=== PATIENT | female | born 1980 | race Two or more races ===

== ENCOUNTER → 2016-10-18 | Outpatient (CLI) | payer OTHER ==
--- NOTE | 2016-10-19 07:16 | MM ---
Reason for exam: clinical finding. Baseline mammogram. History: Patient is nulliparous. Physical Findings: Nurse Summary: less than 5cm nodule in the left breast at 1 o'clock (nurse kp). MG 3D Diag Mammo W/Cad MILAN Bilateral CC and MLO view(s) were taken. The breast tissue is extremely dense which could obscure a lesion on mammography. There is no discrete abnormality. These results were verbally communicated with the patient and result sheet given to the patient on 10/18/16. ASSESSMENT: Incomplete: need additional imaging evaluation, BI-RAD 0 RECOMMENDATION: Ultrasound of the left breast. (palpable)
--- NOTE | 2016-10-19 07:17 | USB ---
Reason for exam: additional evaluation requested from abnormal screening. History: Patient is nulliparous. US Breast LT Left breast ultrasound includes all four quadrants, the retroareolar region and axilla. Finding demonstrates no cystic or solid lesion seen. These results were verbally communicated with the patient and result sheet given to the patient on 10/18/16. ASSESSMENT: Negative, BI-RAD 1 RECOMMENDATION: Routine screening mammogram of both breasts at age 42. Manage patient on a clinical basis.
== END | disposition home or self-care (01) ==
LOC: RADMAMWWP 15:27
PROVIDERS: ATTEND Family Medicine
DX: R92.8 Other abnormal and inconclusive findings on diagnostic imaging of breast (principal); N63 Unspecified lump in breast
CPT/HCPCS: 76641; G0204; G0279

== ENCOUNTER → 2018-01-02 | Outpatient (CLI) | payer OTHER ==
--- NOTE | 2018-01-02 15:59 | US ---
EXAMINATION TYPE: US abdomen comp/pelvis limited DATE OF EXAM: 01/02/2018 COMPARISON: NONE CLINICAL HISTORY: R10.31 Right Lower Quad Pain. UTI, limited due to bowel gas EXAM MEASUREMENTS: Liver Length: 11.7 cm Gallbladder Wall: 0.2 cm CBD: 0.3 cm Spleen: 8.1 cm Right Kidney: 10.3 x 3.3 x 4.3 cm Left Kidney: 9.9 x 4.8 x 4.3 cm Post Void Residual: 0.6 mL Pancreas: Obscured by bowel gas Liver: wnl Gallbladder: wnl CBD: wnl as visualized, distal portion obscured by bowel gas Spleen: wnl Right Kidney: No hydronephrosis or masses seen Left Kidney: No hydronephrosis or masses seen Upper IVC: wnl Abd Aorta: wnl as visualized, proximal portion slightly obscured by bowel gas Bladder: Some debris visualized Bilateral Jets Seen Yes Normal Post Void Residual (normal less than 50ml) Yes Bladder is not completely anechoic but is satisfactorily distended. No intraluminal mass is present. Correlate for cystitis or debris. Visualized portion of aorta is unremarkable. Visualized liver shows no focal mass on images saved. Ga llbladder shows no shadowing mobile gallstones. Both kidneys and spleen are felt within normal limits. Towards end of study scanning of right lower q uadrant shows no worrisome solid or cystic mass or abnormal fluid collection on images saved. IMPRESSION: Not completely anechoic bladder otherwise unremarkable study.
== END | disposition home or self-care (01) ==
LOC: RADUSWWP 15:05
PROVIDERS: ATTEND Family Medicine
DX: R10.31 Right lower quadrant pain (principal)
CPT/HCPCS: 76700; 76857

== ENCOUNTER 2022-01-03 05:15 | Emergency (ER) | payer OTHER ==
--- NOTE | 2022-01-03 06:40 | XR ---
EXAMINATION TYPE: XR chest 2V DATE OF EXAM: 01/03/2022 COMPARISON: NONE HISTORY: Cough TECHNIQUE: 2 view FINDINGS: Heart and mediastinum are normal. Lungs are clear. Diaphragm is normal. Bony thorax is inta ct. IMPRESSION: Normal chest.
[2022-01-03] MEDS ORDERED: IPRATROPIUM-ALBUTEROL 3 ML NEB INHALATION STA (07:34)
[2022-01-03] MEDS ORDERED: predniSONE 50 MG TAB PO STA (07:34)
[2022-01-03] MEDS ORDERED: cefTRIAXone IN SWFI 1,000 MG/10 ML SYRINGE IVP STA (07:34)
--- NOTE | 2022-01-03 08:00 | ED ---
General Adult HPI - General Chief complaint: Upper Respiratory Infection Stated complaint: cough Time Seen by Provider: 01/03/22 07:00 Source: patient, RN notes reviewed, old records reviewed Mode of arrival: ambulatory Limitations: no limitations - History of Present Illness Initial comments: This is a 41-year-old female presents emergency Department complaining that she has had a cough for 3 weeks. Patient states the cough is not to stop him from working but it is consistent and it is become very annoying. Patient denies any fevers currently. Patient states at the beginning she did have fevers. Patient denies any sputum production. Patient states she also has body aches little bit of a headache. Patient denies any shortness of breath or difficulty breathing. Patient denies any chest pain or palpitations. Patient denies any swelling to her legs or calf tenderness. Patient denies any abdominal pain. - Related Data Previous Rx's Medication Instructions Recorded Albuterol Inhaler [Ventolin Hfa 1 - 2 puff INHALATION Q6HR PRN #2 01/03/22 Inhaler] each Azithromycin [Zithromax Tri-Chris (3 500 mg PO DAILY 3 Days #3 tab 01/03/22 tabs)] predniSONE [Deltasone] 40 mg PO DAILY #8 tab 01/03/22 Allergies Allergy/AdvReac Type Severity Reaction Status Date / Time No Known Allergies Allergy Verified 01/03/22 05:59 Review of Systems ROS Statement: Those systems with pertinent positive or pertinent negative responses have been documented in the HPI. ROS Other: All systems not noted in ROS Statement are negative. Past Medical History Past Medical History: No Reported History History of Any Multi-Drug Resistant Organisms: None Reported Past Surgical History: No Surgical Hx Reported Past Psychological History: No Psychological Hx Reported Smoking Status: Never smoker Past Alcohol Use History: Rare Past Drug Use History: None Reported General Exam - General Exam Comments Initial Comments: GENERAL: Patient is well-developed and well-nourished. Patient is nontoxic and well- hydrated and is in mild distress. ENT: Neck is soft and supple. No significant lymphadenopathy is noted. Oropharynx is clear. Moist mucous membranes. Neck has full range of motion without eliciting any pain. EYES: The sclera were anicteric and conjunctiva were pink and moist. Extraocular movements were intact and pupils were equal round and reactive to light. Eyelids were unremarkable. PULMONARY: Unlabored respirations. Good breath sounds bilaterally. Patient has slight expiratory wheezing CARDIOVASCULAR: There is a regular rate and rhythm without any murmurs gallops or rubs. ABDOMEN: Soft and nontender with normal bowel sounds. SKIN: Skin is clear with no lesions or rashes and otherwise unremarkable. NEUROLOGIC: Patient is alert and oriented x3. Cranial nerves II through XII are grossly intact. Motor and sensory are also intact. Normal speech, volume and content. Symmetrical smile. MUSCULOSKELETAL: Normal extremities with adequate strength and full range of motion. No lower extremity swelling or edema. No calf tenderness. LYMPHATICS: No significant lymphadenopathy is noted PSYCHIATRIC: Normal psychiatric evaluation. Limitations: no limitations Course Vital Signs 01/03/22 01/03/22 01/03/22 05:56 08:07 08:18 Temperature 98.1 F Pulse Rate 72 72 80 Respiratory 18 16 16 Rate Blood Pressure 106/72 O2 Sat by Pulse 100 Oximetry Medical Decision Making - Medical Decision Making Chest x-ray shows no acute abnormality She received Rocephin emergency department as well as prednisone and albuterol treatment. I went back in and reevaluated the patient after albuterol she stated she felt considerably better. - Lab Data Lab Results 01/03/22 Range/Units 05:55 Coronavirus (PCR) Not Detected (Not Detectd) Disposition Clinical Impression: Bronchitis with bronchospasm Disposition: HOME SELF-CARE Condition: Good Instructions (If sedation given, give patient instructions): Bronchospasm (ED), Acute Bronchitis (ED) Prescriptions: predniSONE [Deltasone] 40 mg PO DAILY #8 tab Albuterol Inhaler [Ventolin Hfa Inhaler] 1 - 2 puff INHALATION Q6HR PRN #2 each PRN Reason: Difficulty breathing Azithromycin [Zithromax Tri-Chris (3 tabs)] 500 mg PO DAILY 3 Days #3 tab Is patient prescribed a controlled substance at d/c from ED?: No Referrals: Yonathan Graf DO [Primary Care Provider] - 1-2 days Time of Disposition: 08:39
[2022-01-03 08:55] VITALS: BP 110/66; PULSE 75; RESP 18; TEMP 97.6
== END 2022-01-03 08:55 | disposition home or self-care (01) ==
LOC: EC 05:15
DX: J40 Bronchitis, not specified as acute or chronic (principal); Z20.822 Contact with and (suspected) exposure to COVID-19
CPT/HCPCS: 94640; 87635; 71046; 99283; J0696; J7512; 99284

== ENCOUNTER → 2024-01-10 | Outpatient (CLI) | payer OTHER | LOC: CPPFTMAIN 15:57 | PROVIDERS: ATTEND Family Medicine | DX: R05.3 Chronic cough (principal) | CPT/HCPCS: 94060; 94726; 94729 ==